=== PATIENT | female | born 1990 | race African-American/Black ===

== ENCOUNTER 2024-10-14 21:48 | Emergency (ER) | payer SELFPAY ==
[~2024-10-14] VITALS: Ht 172.7 cm; Wt 100.0 kg
[2024-10-14 21:51] VITALS: BP 130/89; PULSE 110; RESP 16; O2SAT 99
== END 2024-10-15 01:01 | disposition left against medical advice (07) ==
LOC: ER 21:48
DX: R07.9 Chest pain, unspecified (principal); Z53.21 Procedure and treatment not carried out due to patient leaving prior to being seen by health care provider
CPT/HCPCS: 93005